=== PATIENT | female | born 1935 | race Caucasian/White ===

== ENCOUNTER 2018-10-28 12:12 | Outpatient (CLI) | payer MEDICARE, BC ==
[2016-04-06 11:30] VITALS: O2SAT 97
== END 2018-10-28 12:13 | disposition home or self-care (01) | DRG 556 ==
LOC: CONVCARE 12:12
PROVIDERS: ATTEND Orthopaedic Surgery
DX: M25.561 Pain in right knee (principal); M25.571 Pain in right ankle and joints of right foot; Z98.890 Other specified postprocedural states; M17.11 Unilateral primary osteoarthritis, right knee
CPT/HCPCS: 73562; 73610

== ENCOUNTER 2019-01-09 14:15 | Inpatient (IN) | payer MEDICARE, BC | END 2019-01-10 10:40 | disposition home or self-care (01) | LOC: ACUTE CARE 14:15 ==